=== PATIENT | male | born 1970 ===

== ENCOUNTER → 2018-04-04 14:15 | Outpatient (CLI) | payer OTHER | END | disposition home or self-care (01) | LOC: LAB 14:15 | DX: R97.20 Elevated prostate specific antigen [PSA] (principal) ==

== ENCOUNTER 2018-04-13 07:34 | Outpatient (CLI) | payer OTHER | END 2018-04-13 07:40 | disposition home or self-care (01) | LOC: SONOGRAMA 07:34 | DX: R97.20 Elevated prostate specific antigen [PSA] (principal) ==